=== PATIENT | male | born 1955 | race Caucasian/White ===

== ENCOUNTER 2017-05-20 23:13 | Emergency (ER) | payer OTHER ==
[~2017-05-20] VITALS: Ht 172.7 cm; Wt 81.0 kg
[2017-05-20 23:24] VITALS: BP 159/71
== END 2017-05-21 00:15 | disposition left against medical advice (07) ==
LOC: ER 23:24
DX: M25.552 Pain in left hip (principal); Z53.21 Procedure and treatment not carried out due to patient leaving prior to being seen by health care provider